=== PATIENT | male | born 1955 | race Caucasian/White ===

== ENCOUNTER → 2018-05-04 | Outpatient (CLI) | payer OTHER | END | disposition home or self-care (01) | LOC: RX STUDY 09:15 | DX: R13.19 Other dysphagia (principal); R10.13 Epigastric pain ==

== ENCOUNTER 2020-05-11 07:47 | Outpatient (CLI) | payer OTHER | END 2020-05-11 07:50 | disposition home or self-care (01) | LOC: RX STUDY 07:47 | PROVIDERS: ATTEND Internal Medicine Gastroenterology | DX: K21.9 Gastro-esophageal reflux disease without esophagitis (principal); R13.19 Other dysphagia; K44.9 Diaphragmatic hernia without obstruction or gangrene ==

== ENCOUNTER 2025-04-29 13:33 | Emergency (ER) | payer OTHER ==
[~2025-04-29] VITALS: Ht 175.3 cm; Wt 99.8 kg
[2025-04-29] MEDS ORDERED: TOPROL XL100 M1 PO (13:53)
[2025-04-29] MEDS ORDERED: BRILINTA90 MG PO (13:54)
[2025-04-29] MEDS ORDERED: NEURONTIN800 MG PO (13:54)
[2025-04-29] MEDS ORDERED: TAMS0.4C PO (13:55)
[2025-04-29] MEDS ORDERED: METFORMIN HCL500 MG (13:55)
[2025-04-29] MEDS ORDERED: LIPITOR80 MG PO (13:56)
[2025-04-29] MEDS ORDERED: RELAFEN DS1000 MG PO (13:57)
[2025-04-29] MEDS ORDERED: VAZALORE81 MG PO (13:57)
[2025-04-29] MEDS ORDERED: HUMULIN 70100 UNIT/2 SUBCUTANEO (13:57)
[2025-04-29] MEDS ORDERED: ACETAMINOPHEN 500 MG GEL..CAP PO ONE (14:30)
== END 2025-04-29 19:30 ==
LOC: ER 13:33
DX: S00.03XA Contusion of scalp, initial encounter (principal); S09.8XXA Other specified injuries of head, initial encounter; W01.0XXA Fall on same level from slipping, tripping and stumbling without subsequent striking against object, initial encounter; Y93.89 Activity, other specified; Y92.018 Other place in single-family (private) house as the place of occurrence of the external cause; Z91.0110 Allergy to milk products, unspecified; E11.9 Type 2 diabetes mellitus without complications; Z79.4 Long term (current) use of insulin; E78.00 Pure hypercholesterolemia, unspecified; N40.0 Benign prostatic hyperplasia without lower urinary tract symptoms; G62.9 Polyneuropathy, unspecified; S00.12XA Contusion of left eyelid and periocular area, initial encounter